=== PATIENT | male | born 1980 | race Caucasian/White ===

== ENCOUNTER 2016-10-08 07:58 | Outpatient (CLI) | payer OTHER, MEDICARE ==
[2016-10-08 08:32] LABS: ALT (SGPT) 17 U/L (8-55); AST (SGOT) 17 U/L (5-34); Albumin 3.9 g/dL (3.5-5.0); Alkaline Phosphatase 86 U/L (40-150); Anion Gap 12 mmol/L (10-20); BUN (Urea Nitrogen) 9 mg/dL (8.9-20.6); Bilirubin, Total 0.7 mg/dL (0.2-1.2); Calc. Creatinine Clearance 0 mL/min (70-130); Calcium 9.2 mg/dL (7.8-10.44); Carbon Dioxide 28 mmol/L (22-29); Cardiac Risk 5.6 (Less than 4.5); Chloride 106 mmol/L (98-107); Cholesterol 141 mg/dl (< 200 Desired); Estimated GFR-MDRD Greater than 90; Globulin 2.8 g/dL (2.4-3.5); Glucose 95 mg/dL (70-105); HDL Cholesterol 25 mg/dL (>60 Neg Risk); LDL Cholesterol, Calculated 101 mg/dL; Potassium 3.9 mmol/L (3.5-5.1); Protein, Total 6.7 g/dL (6.0-8.3); Sodium 142 mmol/L (136-145); Triglycerides 75 mg/dL (Less than 150)
[2016-10-08 08:47] LABS: Band 2 % (5-11); Eosinophils 5 % (0-10); Hemoglobin 13.7 g/dL (14.0-18.0); Lymphocytes 28 % (21-51); MDiff Complete? YES; Mean Corpuscular HGB CONC 34.1 g/dL (32.0-36.0); Mean Corpuscular Hemoglobin 31.2 pg (27.0-31.0); Mean Corpuscular Volume 91.5 fl (80.0-94.0); Mean Platelet Volume 8.2 fL (7.4-10.4); Monocytes 4 % (0-10); Neutrophil 61 % (42-75); Platelet Count 294 thou/uL (130-400); RBC Distribution Width 12.5 % (11.5-14.5); Red Blood Cell (RBC) Count 4.41 mill/uL (4.70-6.10); White Blood Cell (WBC) Count 8.5 thou/uL (4.8-10.8)
[2016-10-08 08:51] LABS: Thyroid Stimulating Hormone 0.9381 uIU/mL (0.35-4.94)
[2016-10-08 16:24] LABS: T4 7.3 ug/dL (4.87-11.72)
== END 2016-10-08 07:59 | disposition home or self-care (01) ==
LOC: BURLAB 07:58
PROVIDERS: ATTEND Family Medicine
DX: I10 Essential (primary) hypertension (principal); F41.9 Anxiety disorder, unspecified
CPT/HCPCS: 36415; 80053; 80061; 84436; 84443; 85025; 85652

== ENCOUNTER 2019-04-29 09:31 | Outpatient (CLI) | payer OTHER, MEDICARE ==
--- NOTE | 2019-04-30 08:06 | ULT ---
RIGHT UPPER EXTREMITY VENOUS ULTRASOUND: Date: 04/29/2019 Color duplex Doppler ultrasonography of the right upper extremity was done to investigate swelling fo r 6 weeks. All deep veins were freely compressible from the jugular region through the wrist. No echogenic clot seen. There was normal Doppler response to augmentation maneuvers. IMPRESSION: No evidence of deep venous thrombosis. POS: HOME
== END 2019-04-29 09:32 | disposition home or self-care (01) ==
LOC: BURULT 09:31
PROVIDERS: ATTEND Physician Assistant
DX: I82.621 Acute embolism and thrombosis of deep veins of right upper extremity (principal)

== ENCOUNTER 2019-05-05 20:26 | Emergency (ER) | payer OTHER, MEDICARE | END 2019-05-05 20:42 | disposition home or self-care (01) | LOC: BURERS 20:26 | DX: L03.012 Cellulitis of left finger (principal); I10 Essential (primary) hypertension; F41.9 Anxiety disorder, unspecified; Z79.899 Other long term (current) drug therapy | CPT/HCPCS: 99283 ==

== ENCOUNTER 2019-05-08 16:00 | Emergency (ER) | payer OTHER, MEDICARE ==
[2019-05-08] MEDS ORDERED: Lidocaine 1% PF 5 ML VIAL ONE (16:05)
== END 2019-05-08 16:23 | disposition home or self-care (01) ==
LOC: BURERS 16:00
DX: L02.512 Cutaneous abscess of left hand (principal); I10 Essential (primary) hypertension; F41.9 Anxiety disorder, unspecified; Z79.899 Other long term (current) drug therapy; Z79.891 Long term (current) use of opiate analgesic
CPT/HCPCS: 10060; J2001

== ENCOUNTER 2021-11-15 19:36 | Emergency (ER) | payer BC, MEDICARE | END 2021-11-15 20:15 | disposition home or self-care (01) | LOC: BURERS 19:36 | DX: L89.216 Pressure-induced deep tissue damage of right hip (principal); I10 Essential (primary) hypertension; F17.210 Nicotine dependence, cigarettes, uncomplicated; Z79.899 Other long term (current) drug therapy | CPT/HCPCS: 87070; 87077; 87186; 87205; 99283 ==

== ENCOUNTER 2022-05-18 19:53 | Emergency (ER) | payer BC, MEDICARE ==
[2022-05-18] MEDS ORDERED: Ketorolac Tromethamine 30 MG/ML VIAL ONE (20:14)
[2022-05-18] MEDS ORDERED: Vancomycin 1 GM VIAL ONE (20:14)
[2022-05-18] MEDS ORDERED: Piperacillin/Tazobactam 3.375 GM VIAL ONE (20:14)
[2022-05-18 20:25] LABS: #Basophils 0.1 thou/uL (0.0-0.2); #Lymphocytes 0.5 thou/uL (1.20-3.40); #Monocytes 0.7 thou/uL (0.11-0.59); #Neutrophils 7.7 thou/uL (1.40-6.50); %Basophils 1.4 % (0.0-1.0); %Eosinophils 0.3 % (0.0-10.0); %Lymphocytes 5.8 % (21.0-51.0); %Monocytes 7.3 % (0.0-10.0); %Neutrophils 85.2 % (42.0-75.0); Hemoglobin 11.6 g/dL (14.0-18.0); Mean Corpuscular HGB CONC 36.8 g/dL (32.0-36.0); Mean Corpuscular Hemoglobin 36.5 pg (27.0-31.0); Mean Corpuscular Volume 99.3 fl (78.0-98.0); Mean Platelet Volume 9.3 fL (7.4-10.4); Platelet Count 190 10x3/uL (130-400); RBC Distribution Width 10.9 % (11.5-14.5); Red Blood Cell (RBC) Count 3.18 mill/uL (4.70-6.10); White Blood Cell (WBC) Count 9.1 10x3/uL (4.8-10.8)
[2022-05-18 20:38] LABS: Platelet Morphology Comment Appears Adequate; RBC Morphology Normal
[2022-05-18 20:40] LABS: MDiff Complete? YES
[2022-05-18 20:43] LABS: ALT (SGPT) 36 U/L (8-55); AST (SGOT) 56 U/L (5-34); Albumin 2.9 g/dL (3.5-5.0); Alkaline Phosphatase 88 U/L (40-110); Anion Gap 14 mmol/L (10-20); BUN (Urea Nitrogen) 7 mg/dL (8.9-20.6); Bilirubin, Total 0.9 mg/dL (0.2-1.2); Calc. Creatinine Clearance 0 mL/min (70-130); Carbon Dioxide 25 mmol/L (22-29); Chloride 92 mmol/L (98-107); Estimated GFR 115; Globulin 3.2 g/dL (2.4-3.5); Glucose 117 mg/dL (70-105); Magnesium 1.6 mg/dL (1.6-2.6); Protein, Total 6.1 g/dL (6.0-8.3); Sodium 128 mmol/L (136-145)
[2022-05-18] MEDS ORDERED: Potassium Chloride 20 MEQ TAB ONE (21:06)
== END 2022-05-18 23:34 | disposition short-term general hospital (02) ==
LOC: BURERS 19:53
DX: L89.319 Pressure ulcer of right buttock, unspecified stage (principal); E87.6 Hypokalemia; E87.1 Hypo-osmolality and hyponatremia; F17.210 Nicotine dependence, cigarettes, uncomplicated
CPT/HCPCS: 36415; 80053; 83605; 83735; 85025; 87040; 87070; 87077; 87205; 96365; 96366; 96367; 96368; J1885; J2543; J3370